=== PATIENT | male | born 1985 | race Caucasian/White ===

== ENCOUNTER 2023-01-19 11:11 | Emergency (ER) | payer OTHER ==
[~2023-01-19] VITALS: Ht 180.3 cm; Wt 81.8 kg
[2023-01-19 13:30] VITALS: BP 131/94
== END 2023-01-19 13:37 | disposition home or self-care (01) ==
LOC: M ED 11:11
DX: S43.122A Dislocation of left acromioclavicular joint, 100%-200% displacement, initial encounter (principal); S70.02XA Contusion of left hip, initial encounter; V29.99XA Rider (driver) (passenger) of other motorcycle injured in unspecified traffic accident, initial encounter

== ENCOUNTER → 2023-01-26 | Outpatient (CLI) | payer OTHER | LOC: M SOG 11:40 | PROVIDERS: ATTEND Orthopaedic Surgery | DX: M25.512 Pain in left shoulder (principal) ==